=== PATIENT | female | born 1945 | race Caucasian/White ===

== ENCOUNTER → 2017-05-24 | Outpatient (CLI) | payer OTHER ==
[~2017-05-24] MED LIST: ACET-24 PO; LEVO88TA3 PO; LISI40TA PO; NAPR1TAB9 PO; PANT40TA PO; PRAV20TA PO; RANI300T2 PO; SYMIN/8045 INH; TRAZ100T29 PO; ULT50X PO; XRL10 PO
--- NOTE | 2017-05-24 12:55 | DIAGNOSTIC IMAGING REPORT ---
CT OF THE CHEST WITHOUT IV CONTRAST CLINICAL HISTORY: Abnormal preoperative chest radiograph. COMPARISON STUDY: Chest radiograph May 18, 2017. CT DOSE: 493.32 mGycm TECHNIQUE: Axial images of the chest were obtained without IV contrast. Images were reviewed in the axial, sagittal, and coronal planes. IV contrast was not administered for this examination. A dose lowering technique was utilized adhering to the principles of ALARA. FINDINGS: No enlarged axillary, mediastinal or hilar lymph nodes are present. The size of the heart is normal. There is no pericardial effusion. No tracheal abnormality is identified. The possible tracheal abnormality on chest radiograph May 18, 2017 was artifactual. A right shoulder arthroplasty is noted. Lungs are clear with the exception of subsegmental atelectasis within the lower lungs. No pneumothorax or pleural effusion is present. Pulmonary vascularity is normal. Bony thorax and upper abdomen are unremarkable status post cholecystectomy. IMPRESSION: 1. No tracheal abnormality. The possible tracheal abnormality on chest radiograph of May 18, 2017 was artifactual. 2. No acute intrathoracic findings. Electronically signed by: Pedro Jo M.D. 05/24/2017 12:54 PM Dictated Date/Time: 05/24/2017 12:44 PM
== END | disposition home or self-care (01) ==
LOC: C.CTS 11:41
PROVIDERS: ATTEND Orthopaedic Surgery Sports Medicine
DX: Z01.818 Encounter for other preprocedural examination (principal); R93.8 Abnormal findings on diagnostic imaging of other specified body structures

== ENCOUNTER 2017-06-12 10:06 | Inpatient (IN) | payer OTHER ==
[2017-05-18 11:44] VITALS: BMI 33.0
--- NOTE | 2017-05-18 12:16 | PAT Medication Instructions ---
Service Date May 18, 2017. Current Home Medication List Levothyroxine Sodium (Levothyroxine Sodium), 1 TAB PO QAM Lisinopril (Zestril), 40 MG PO QPM Naproxen (Aleve), 220 MG PO UD PRN for Pain Pantoprazole (Protonix), 40 MG PO after all three meal Pravastatin (Pravachol ), 40 MG PO HS Rivaroxaban (Xarelto), 20 MG PO QDD Trazodone Hcl (Trazodone), 100 MG PO UD PRN for Sleep [Inhaler ], Unknown Dose INH UD PRN for ASTHMA Medication Instructions For Your Scheduled Surgery - Instructions to be given by prescribing physician/surgeon: Rivaroxaban (Xarelto), 20 MG PO QDD - Hold the following medications 24 hours prior to surgery: Lisinopril (Zestril), 40 MG PO QPM - Hold the following medications the morning of surgery: Naproxen (Aleve), 220 MG PO UD PRN for Pain (otherwise okay to continue per surgeon) - Take the following medications the morning of surgery with a sip of water OTHERWISE NOTHING TO EAT OR DRINK AFTER MIDNIGHT: Levothyroxine Sodium (Levothyroxine Sodium), 1 TAB PO QAM [Inhaler ], Unknown Dose INH UD PRN for ASTHMA (use if needed; BRING TO HOSPITAL ) Pantoprazole (Protonix), 40 MG PO after all three meal - Take the following medications as scheduled the night before surgery: Pravastatin (Pravachol ), 40 MG PO HS [Inhaler ], Unknown Dose INH UD PRN for ASTHMA Trazodone Hcl (Trazodone), 100 MG PO UD PRN for Sleep If you have any questions please call us at [phone] or [phone] or [phone]
[2017-05-18 13:20] LABS: BASO % 0.4 %; BASO ABS # 0.03 K/uL (0-0.2); COMPLETE YES; EOS % 3.1 %; HEMATOCRIT 41.2 % (37-47); IG% 0.3 %; LYMPH % 22.8 %; LYMPH ABS # 1.79 K/uL (1.2-3.4); MEAN CELL VOLUME 90.9 fL (80-100); MEAN CORPUSCULAR HEMOGLOBIN 30.9 pg (25-34); MEAN PLATELET VOLUME 10.9 fL (7.4-10.4); MONO % 12.2 %; NEUT % 61.2 %; PLATELET COUNT 233 K/uL (130-400); RED BLOOD COUNT 4.53 M/uL (4.2-5.4); WHITE BLOOD COUNT 7.86 K/uL (4.8-10.8)
--- NOTE | 2017-05-18 13:23 | DIAGNOSTIC IMAGING REPORT ---
CHEST 2 VIEWS ROUTINE HISTORY: Preop. COMPARISON: Chest 01/07/2008. FINDINGS: The lungs are clear. The heart is normal in size. No pleural effusions. No pneumothorax. Right shoulder prosthesis. There appears to be focal tortuosity with possible narrowing within the trachea at the level of the sternoclavicular joints. IMPRESSION: There appears to be focal tortuosity with possible narrowing within the trachea at the level of the sternoclavicular joint. Given the preoperative nature of this study a chest CT is recommended to exclude the possibility of tracheomalacia. These findings were called to the referring physician's office following dictation. Electronically signed by: Lazaro Smith M.D. 05/18/2017 1:22 PM Dictated Date/Time: 05/18/2017 1:18 PM
[2017-05-18 13:35] LABS: PROTHROMBIN TIME (PATIENT) 11.1 SECONDS (9.0-12.0)
[2017-05-18 13:39] LABS: BLOOD UREA NITROGEN 19 mg/dl (7-18); BUN/CREATININE RATIO 25.2 (10-20); CALCIUM 8.6 mg/dl (8.5-10.1); CARBON DIOXIDE 27 mmol/L (21-32); CHLORIDE 108 mmol/L (98-107); CREATININE 0.77 mg/dl (0.60-1.20); GLUCOSE 92 mg/dl (70-99); POTASSIUM 3.9 mmol/L (3.5-5.1); SODIUM 141 mmol/L (136-145)
[2017-05-18 13:40] LABS: C-REACTIVE PROTEIN < 0.29 mg/dl (0-0.29)
--- NOTE | 2017-06-06 22:44 | HISTORY & PHYSICAL EXAMINATION ---
DATE OF ADMISSION: 06/12/2017 CHIEF COMPLAINT: Right knee pain. HISTORY OF PRESENT ILLNESS: It is a 72-year-old female who presents for surgical treatment of her right knee. She has got several year history of increasing right knee pain and discomfort. She has been treated with injections, which help her very temporarily. It does not help for more than a week. Pain is mostly in the medial side of her knee. The knee has gotten stiffer as time is going on. She has limited walking tolerance of a couple of blocks. She has nighttime pain. She would like to have her right knee replaced. She cannot take NSAIDs due to her history of DVT and PE in the past and currently on Xarelto. She does have an IVC filter in place. The patient does have a history of a PE after previous colon surgery. She is on chronic Xarelto with an IVC filter in place, though there is no known clotting disorder. PAST MEDICAL HISTORY: 1. Hypertension. 2. Elevated cholesterol. 3. Asthma. 4. 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 5. Hypothyroidism. 6. Obesity with BMI of 33. 7. Gastroesophageal reflux disease. PAST SURGICAL HISTORY: Include: 1. Right shoulder replacement done by Dr. Bailey in 2016. 2. Left knee replacement done by Dr. Naranjo in 2007. 3. IVC filter placement in 2008. 4. Unspecified colon surgery. ALLERGIES: None. CURRENT MEDICINES: 1. Xarelto 20 mg a day. 2. Levothyroxine 88 mcg a day. 3. Lisinopril 40 mg in the evening. 4. Pravastatin 40 mg at night. 5. Pantoprazole 40 mg after meals. 6. Trazodone 100 mg at night. 7. Aleve p.r.n. SOCIAL HISTORY: A 72-year-old female patient from [place] and does not smoke. FAMILY HISTORY: Significant with diabetes and leukemia. There is no known family history of blood clots. REVIEW OF SYSTEMS: Review of systems is significant for previous DVT, PE in the past, on Xarelto. She is not diabetic. No chest pain or shortness of breath. PHYSICAL EXAMINATION: GENERAL: Reveals a pleasant, elderly female who looks reasonably in good health. HEENT: Benign. NECK: Supple. No lymphadenopathy. LUNGS: Clear to auscultation. HEART: Regular rate and rhythm. ABDOMEN: Soft, nontender, nondistended. EXTREMITIES: Grossly neurovascularly intact, except as follows: Examination of the right knee reveals the patient walks with a bit of a stiff knee gait. She does not really bend her knee much. There is a small to moderate sized knee effusion. Range of motion is pretty stiff with 10 degrees short of full extension to 100 degrees of flexion. She can do a straight leg raise. Minimal pain with hip motion. X-RAYS: X-rays of the right knee reveal advanced right knee DJD. She has got near complete loss of medial joint space. This has progressed since her most recent films. She does have a little chondrocalcinosis. ASSESSMENT: A 72-year-old female status post left knee replacement and recent shoulder surgery with advanced right knee degenerative joint disease. She does have a history of pulmonary embolism in the past and has an IVC filter in place and on Xarelto. PLAN: We talked about treatment options. The patient just wants her knee fixed. Not interested in any more conservative care. We are going to take her to the operating room and do a right total knee replacement. The risks and benefits of this procedure were explained to the patient including, but not limited to DVT, PE, , infection, neurological injury, vascular injury, bleeding problem, pain, limited range of motion, stiffness, failure to relieve symptoms, incomplete relief of symptoms, need for further surgery in future, fracture, leg length inequality, nerve palsy, etc. The patient understands and desires to proceed. Informed consent was obtained. We did talk about stopping her Xarelto 3 days preop. She will hold the lisinopril the morning of surgery and stop the Aleve 10 days preop. She really probably should not be on leave in the first place. We will use Xarelto postoperatively for DVT prophylaxis. We will start 24 hours after surgery and begin in a prophylactic dose and then increase this probably 3 days later to a full dose. The patient does have an IVC filter in place. She is planning to be discharged to home using [facility] home health program.
[2017-06-12] VITALS (7 sets, daily range): BP systolic 138–167; BP diastolic 71–83; PULSE 57–70; TEMP 36.3–36.8; O2SAT 93–98; Ht 157.5 cm; Wt 82.8 kg
[~2017-06-12] VITALS: Ht 157.5 cm; Wt 82.8 kg
[~2017-06-12 10:06] MED LIST changes: -ACET-24 PO; +ACETAMINOPHEN 500 MG TAB PO SCH; +BUPIVACAINE 0.5 % 5 MG/1 ML PF 10ML VIAL ONE; +BUPIVACAINE LIPOSOME 266 MG, BUPIVACAINE/EPINEPHRINE INJ 50 ML, SODIUM CHLORIDE 0.9% PF... INFIL SCH; +CEFAZOLIN 2000 MG/60 ML D5W 60 ML IV SCH; +FAMOTIDINE 20 MG TAB PO SCH; +GABAPENTIN 300 MG CAP PO SCH; +LACTATED RINGER'S 1000ML 1,000 ML IV SCH; +LACTATED RINGER'S 1000ML 500 ML IV SCH; +LACTATED RINGER'S 1000ML IV SCH; +METOCLOPRAMIDE HCL 10 MG TAB PO SCH; +SCOPOLAMINE 1.5 MG TDSY TD SCH; +TRANEXAMIC ACID INJ 1,000 MG in SODIUM CHLORIDE 0.9% 100ML 100 ML IV SCH; -ULT50X PO
--- NOTE | 2017-06-12 10:44 | History & Physical Bridge Note ---
H&P Re-Evaluation Bridge Note: I have examined the patient, reviewed the History & Physical and in the interval since the performance of the History & Physical I have noted the following changes of clinical significance: No changes noted
[2017-06-12] MEDS ORDERED: FENTANYL CITRATE INJ 50 MCG/1 ML 2 ML VIAL ONE (10:59)
[2017-06-12] MEDS ORDERED: PROPOFOL IV EMULSION 10 MG/ML 20 ML VIAL IV ONE (10:59)
[2017-06-12] MEDS ORDERED: LIDOCAINE HCL 2% 2 ML VIAL (20MG/ML) ONE (10:59)
[2017-06-12] MEDS ORDERED: MIDAZOLAM HCL 1 MG/ML 2ML VIAL ONE (10:59)
[2017-06-12] MEDS ORDERED: ONDANSETRON INJ 2 MG/ML 2 ML VIAL ONE (10:59)
[2017-06-12] MEDS ORDERED: SODIUM CHLORIDE 0.9% PF 50 ML VIAL ONE (11:01)
[2017-06-12] MEDS ORDERED: BUPIVACAINE LIPOSOME 1/3% 266 MG/20 ML VIAL INFIL ONE (11:01)
[2017-06-12] MEDS ORDERED: BACITRACIN 50000 UNIT VIAL ONE (11:01)
[2017-06-12] MEDS ORDERED: BUPIVACAINE/EPINEPHRINE 0.25% 1:200,000 30 ML VIAL ONE (11:01)
[2017-06-12] MEDS ORDERED: FENTANYL CITRATE INJ 50 MCG/1 ML 2 ML VIAL IV PRN (13:00)
[2017-06-12] MEDS ORDERED: EpHEDrine SULFATE INJ 50 MG/ML AMP IV PRN (13:00)
[2017-06-12] MEDS ORDERED: ATROPINE SULFATE 0.1 MG/ML 5ML SYR IV PRN (13:00)
[2017-06-12] MEDS ORDERED: ONDANSETRON INJ 2 MG/ML 2 ML VIAL IV PRN ×2 (13:00→14:45)
--- NOTE | 2017-06-12 14:36 | [facility] Post Operative Brief Note ---
Immediate Operative Summary Operative Date Jun 12, 2017. Pre-Operative Diagnosis Advanced Right Knee Degenerative Joint Disease Post-Operative Diagnosis same as preop Procedure(s) Performed Right Total Knee Arthroplasty Surgeon Dr. Regan Chandra Drug Safety Scientist Surgeon(s) Gianfranco Torres PA-C Estimated Blood Loss 50ML Findings Right Knee DJD Specimens A.) Right Knee Bone and Tissue Drains NOne Anesthesia Spinal Complication(s) None Disposition Recovery Room / PACU
[2017-06-12] MEDS ORDERED: TRAZODONE HCL 100 MG TAB PO PRN (14:45)
[2017-06-12] MEDS ORDERED: ZOLPIDEM TARTRATE 5 MG TAB PO PRN (14:45)
[2017-06-12] MEDS ORDERED: SILVER SULFADIAZINE 1% CR 50 GM JAR EXT PRN (14:45)
[2017-06-12] MEDS ORDERED: ALUMINUM/MAGNESIUM/SIMETH (MAALOX MAX) 30 ML UDC PO PRN (14:45)
[2017-06-12] MEDS ORDERED: MAGNESIUM HYDROXIDE SUSP 30 ML UDC PO PRN (14:45)
[2017-06-12] MEDS ORDERED: BISACODYL 10 MG SUPP PR PRN (14:45)
[2017-06-12] MEDS ORDERED: METOCLOPRAMIDE HCL INJ 5 MG/ML 2 ML VIAL IV PRN (14:45)
--- NOTE | 2017-06-12 15:19 | DIAGNOSTIC IMAGING REPORT ---
R KNEE 1 OR 2 VIEWS ROUTINE CLINICAL HISTORY: 72 years-old Female presenting with postoperative. TECHNIQUE: Frontal and lateral views of the right knee were obtained. COMPARISON: 05/18/2017. FINDINGS: Postsurgical changes of total right knee arthroplasty with patellar resurfacing. Intra-articular and soft tissue emphysema. Overlying skin sergey. No acute fracture or hardware complication. IMPRESSION: Expected postsurgical appearance status post total right knee arthroplasty with patellar resurfacing. Electronically signed by: Nick Vargas M.D. 06/12/2017 3:18 PM Dictated Date/Time: 06/12/2017 3:17 PM
--- NOTE | 2017-06-12 15:40 | Anesthesiology Progress Note ---
Anesthesia Post Op Note Date & Time Jun 12, 2017 at 15:40 Vital Signs Pain Intensity: 0 Vital Signs Past 12 Hours Date Time Temp Pulse Resp B/P (MAP) Pulse Ox O2 Delivery O2 Flow Rate FiO2 06/12/17 15:30 58 22 119/63 95 Nasal Cannula 2 06/12/17 15:20 58 20 132/62 95 Nasal Cannula 2 06/12/17 15:10 36.7 58 20 121/61 96 Nasal Cannula 2 06/12/17 15:00 61 22 116/58 95 Nasal Cannula 2 06/12/17 14:50 63 20 125/63 97 Nasal Cannula 2 06/12/17 14:42 37.2 66 16 119/60 96 Mask 10 06/12/17 10:45 36.5 66 20 150/81 97 Room Air Notes Mental Status: alert / awake / arousable, participated in evaluation Pt Amnestic to Procedure: Yes Nausea / Vomiting: adequately controlled Pain: adequately controlled Airway Patency, RR, SpO2: stable & adequate BP & HR: stable & adequate Hydration State: stable & adequate Neuraxial Anesthesia: was administered, sensory block is resolving Anesthetic Complications: no major complications apparent
[2017-06-12] MEDS ORDERED: CHECK SCOPOLAMINE PATCH PLACEMENT SCH (16:00)
[2017-06-12] MEDS: HYDROmorphone INJ 0.5 MG/0.5 ML SYR IV PRN ×2 (17:01→18:11)
[2017-06-12] MEDS ORDERED: NURSING VERBAL MED ORDER ONE (17:45)
--- NOTE | 2017-06-12 17:58 | OPERATIVE REPORT ---
DATE OF OPERATION: 06/12/2017 SURGEON: Regan Chandra MD TABULAR TYPIST: TAMRA Chen PREOPERATIVE DIAGNOSIS: Right knee degenerative joint disease. POSTOPERATIVE DIAGNOSIS: Same. PROCEDURE PERFORMED: Right cemented posterior stabilized total knee arthroplasty. COMPLICATIONS: None. ESTIMATED BLOOD LOSS: 50 mL. FLUID REPLACEMENT: 1500 mL crystalloid fluid replacement. TOURNIQUET TIME: 51 minutes at 300 mmHg. ANESTHESIA: Spinal with adductor canal block. DRAINS: None. SPECIMENS: Right knee sent for pathology. OPERATIVE INDICATIONS: The patient is a 72-year-old female who has had a long history of knee problems. She underwent a left knee replacement about 9 years ago and has done pretty well from this. Over the past several years, she has developed increased pain and discomfort in her right knee. She failed conservative care and elected to proceed with total knee arthroplasty. OPERATIVE FINDINGS: Operative findings revealed advanced right knee DJD. She had grade 4 [id number] disease in the medial femoral condyle and medial tibial plateau. She had grade 4 changes in the patellofemoral joint as well. The lateral compartment was pretty well preserved. Moderate size joint effusion. Clinically, she had a pretty stiff knee with limited motion of about 5-100 degrees. OPERATIVE IMPLANTS: Operative implants consisted of: 1. Biomet Vanguard size 60 right posterior stabilized femoral component. 2. Biomet size 67 tibial tray. 3. A 12-mm posterior stabilized polyethylene insert. 4. A 31 x 8 all poly patella. OPERATIVE PROCEDURE: The patient was taken to the operating room, identified and placed on the operative table in the supine position. All contact areas were appropriately padded. IV antibiotics were provided by the anesthesia team. A spinal anesthetic and adductor canal block had been provided in the holding area. Dominguez catheter was placed in sterile fashion. A right thigh tourniquet was then placed and the right lower extremity was then prepped and draped in the usual sterile fashion. The right leg was elevated and exsanguinated with Esmarch and tourniquet was placed at 300 mmHg. An anterior approach to the right knee was then performed through a longitudinal incision centered over the patella. Sharp dissection was carried out through the subcutaneous tissues down to the level of the extensor mechanism. A medial parapatellar arthrotomy incision was made. Some subperiosteal dissection was carried out medially. The fat pad was resected from beneath the patellar tendon. The lateral patellofemoral ligament was released. The patella was everted and the knee was flexed. The osteophytes were taken off the distal femur. The ACL and PCL were then released from the distal femur and the tibia subluxated anteriorly. The external tibial alignment jig was then placed in the anterior face of the tibia and adjusted 14 mm medially. Proximal tibial cut was made to remove about 2 mm of bone from most deficient aspect of the medial tibial side. Some osteophytes were taken off medial and posteromedially. Tibia was sized to a size 67. Attention was then drawn to the femur. The distal femur was entered with a sharp drill. Intramedullary canal was suctioned. A right 5-degree valgus cutting guide was placed. Distal femoral cutting block was pinned in place. Distal femoral cut was made to take an additional 3 mm of bone off the distal femur. The femur was then sized to a size 60. We did downsize this slightly. The AP cutting block was pinned parallel to the epicondylar axis, which was 3 degrees of external rotation. The anterior cut, anterior chamfer, posterior cut, and posterior chamfer cuts were made. Box cutting guide was placed and adjusted slight lateral and the box cut was made. The knee was flexed. The remnants of the medial and lateral menisci were excised. The osteophytes were taken off the posterior aspect of the femur. A trial femoral component was placed. The tibial tray was pinned in maximum external rotation and the drill and stem punch were used to create defect in the proximal tibia for the tibial tray. The knee was then trialed and the 12-mm insert fit most appropriately. Attention was then drawn to the patella. The patella was cleaned of all soft tissues. The patella thickness measured 22 mm and it was cut down to 13 mm of thickness. It was sized to a size 31 patella. Lug holes were drilled for the 31 patella. Lateral osteophyte was removed. Patella button was placed. Knee was taken through range of motion and the patella tracked nicely with no thumbs test. Attention was then drawn toward placement of permanent components. All trial components were removed. A bone plug was placed in the distal femur to limit blood loss. A double batch of Palacos G cement was mixed. A right size 60 right posterior stabilized femoral component, a size 67 tibial tray, a 12-mm posterior stabilized polyethylene insert and a 31 x 8 all poly patella were then cemented in place. The knee was brought out into full extension until cement hardened. A final cement check was then performed. The wound was then irrigated with copious amounts of pulsatile lavage solution. I did inject locally with 100 mL of a combination of 20 mL of Exparel, 30 mL of normal saline, and 50 mL of 0.25% Marcaine with epinephrine. The patient did receive 1 gram of tranexamic acid. The tourniquet was let down for a final tourniquet time of 51 minutes. Hemostasis was assured with use of electrocautery. The extensor mechanism was then closed with a combination of #1 PDS suture and #1 Vicryl suture in a [id number] fashion. Extensor mechanism was checked and found to be intact. Subcutaneous tissues were then closed with 2-0 Dexon suture in a buried interrupted fashion. Skin was closed with skin sergey. The leg was then cleaned and dried and a sterile dressing of Xeroform, 4 x 4, sterile cast padding and Oren bandage were applied. The patient then transferred to the recovery room in stable condition. The patient tolerated the procedure well with no complications. All needle and sponge counts were correct at the end of the operation. I attest to the content of the Intraoperative Record and any orders documented therein. Any exception s are noted below.
[2017-06-12] MEDS: FERROUS GLUCONATE 324 MG TAB PO SCH (18:15)
[2017-06-12] MEDS ORDERED: INFLUENZA VACCINE HIGH DOSE 65+ 0.5 ML SYR IM. ONE (18:45)
[2017-06-12] MEDS ORDERED: INFLUENZA ADMINISTRATION CHARGE ONE (18:45)
[2017-06-12] MEDS: NSS + 20MEQ KCL 1000ML 1,000 ML IV SCH (19:26)
[2017-06-12] MEDS: TRAMADOL HCL 50 MG TAB PO PRN (20:39)
[2017-06-12] MEDS: KETOROLAC TROMETHAMINE 15 MG/ML VIAL IV. SCH (20:40)
[2017-06-12] MEDS: BUDESONIDE/FORMOTEROL FUMARATE 80/4.5 60 PUFFS/INHALER INH SCH (20:41)
[2017-06-12] MEDS: DOCUSATE SODIUM 100 MG CAP PO SCH (20:42)
[2017-06-12] MEDS: PRAVASTATIN SOD 20 MG TAB PO SCH (20:42)
[2017-06-12] MEDS: SENNA 8.6 MG TAB PO SCH (20:43)
[2017-06-12] MEDS: LISINOPRIL 40 MG TAB PO SCH (21:22)
[2017-06-12] MEDS: ACETAMINOPHEN 500 MG TAB PO SCH (21:31)
[2017-06-12] MEDS: CEFAZOLIN IV 2,000 MG in DEXTROSE 5% 50ML 50 ML IV SCH (21:31)
[2017-06-13] MEDS: KETOROLAC TROMETHAMINE 15 MG/ML VIAL IV. SCH ×3 (01:53→14:31)
[2017-06-13 03:34] VITALS: BP 112/68; PULSE 66; TEMP 36.8; O2SAT 94
[2017-06-13] MEDS: NSS + 20MEQ KCL 1000ML 1,000 ML IV SCH (03:50)
[2017-06-13] MEDS ORDERED: COUGH DROP (SUGAR FREE) LOZ 24 LOZ/1 BOX ONE (03:54)
[2017-06-13] MEDS: CEFAZOLIN IV 2,000 MG in DEXTROSE 5% 50ML 50 ML IV SCH (06:01)
[2017-06-13] MEDS: LEVOTHYROXINE 88 MCG TAB PO SCH (06:02)
[2017-06-13] MEDS: ACETAMINOPHEN 500 MG TAB PO SCH ×3 (06:02→21:40)
[2017-06-13 06:17] LABS: HEMATOCRIT 36.5 % (37-47); MEAN CELL VOLUME 90.3 fL (80-100); MEAN CORPUSCULAR HEMOGLOBIN 30.2 pg (25-34); MEAN CORPUSCULAR HGB CONC 33.4 g/dl (32-36); MEAN PLATELET VOLUME 9.9 fL (7.4-10.4); PLATELET COUNT 194 K/uL (130-400); RED BLOOD COUNT 4.04 M/uL (4.2-5.4); WHITE BLOOD COUNT 8.97 K/uL (4.8-10.8)
[2017-06-13 06:58] LABS: BUN/CREATININE RATIO 17.4 (10-20); CALCIUM 8.3 mg/dl (8.5-10.1); CREATININE 0.74 mg/dl (0.60-1.20); POTASSIUM 4.1 mmol/L (3.5-5.1)
[2017-06-13 07:01] VITALS: BP 130/76; PULSE 70; TEMP 36.9; O2SAT 92
--- NOTE | 2017-06-13 07:42 | Anesthesiology Progress Note ---
Anesthesia Post Op Note Date & Time Jun 13, 2017 at 07:42 Vital Signs Pain Intensity: 10.0 Vital Signs Past 12 Hours Date Time Temp Pulse Resp B/P (MAP) Pulse Ox O2 Delivery O2 Flow Rate FiO2 06/13/17 07:01 36.9 70 16 130/76 (94) 92 Room Air 06/13/17 03:34 36.8 66 16 112/68 (83) 94 Room Air 06/12/17 23:39 Room Air 06/12/17 22:50 36.8 68 16 138/71 (93) 93 Room Air Notes Mental Status: alert / awake / arousable, participated in evaluation Pt Amnestic to Procedure: Yes Nausea / Vomiting: adequately controlled Pain: improving with treatment Airway Patency, RR, SpO2: stable & adequate BP & HR: stable & adequate Hydration State: stable & adequate Neuraxial Anesthesia: was administered, sensory block resolved Anesthetic Complications: no major complications apparent
[2017-06-13] MEDS: FERROUS GLUCONATE 324 MG TAB PO SCH ×3 (08:13→18:27)
[2017-06-13] MEDS: BUDESONIDE/FORMOTEROL FUMARATE 80/4.5 60 PUFFS/INHALER INH SCH ×2 (08:13→20:38)
[2017-06-13] MEDS: MULTIVITAMIN TAB PO SCH (08:16)
[2017-06-13] MEDS: PANTOprazole SOD 40 MG TAB PO SCH (08:16)
[2017-06-13] MEDS: DOCUSATE SODIUM 100 MG CAP PO SCH ×2 (08:16→20:38)
[2017-06-13] MEDS: TRAMADOL HCL 50 MG TAB PO PRN ×2 (08:19→16:25)
[2017-06-13] MEDS ORDERED: PANTOprazole SOD 40 MG TAB PO SCH (09:00)
[2017-06-13 09:25] VITALS: BP 121/68
[2017-06-13 11:03] VITALS: BP 122/71; PULSE 73; TEMP 37.1; O2SAT 91
[2017-06-13] MEDS: HYDROmorphone INJ 0.5 MG/0.5 ML SYR IV PRN (12:17)
--- NOTE | 2017-06-13 12:35 | PROGRESS NOTE ---
DATE: 06/13/2017 SUBJECTIVE: A 72-year-old female postop day #1 from right knee replacement. She is doing pretty well. Pain is controlled. Therapy went well. Denies any chest pain or shortness of breath. Not feeling dizzy or lightheaded. OBJECTIVE: VITAL SIGNS: Temperature 37.1. Vital signs stable. GENERAL: Reveals a pleasant elderly female. She is lying in bed and looks comfortable. LUNGS: Clear to auscultation. HEART: Regular rate and rhythm. ABDOMEN: Soft, nontender, nondistended. EXTREMITIES: Grossly neurovascularly intact except as follows: Examination of the right leg reveals the dressing to be clean, dry and intact. She can dorsiflex and plantarflex her foot appropriately. She is neurologically intact. LABORATORY DATA: Hemoglobin is 12.2, hematocrit 36.5. Electrolytes are stable. ASSESSMENT: A 72-year-old white female with a history of a deep vein thrombosis and PE in the past with inferior vena cava filter on postop day #1 from right knee replacement. She is doing pretty well. Pain is reasonably well controlled. She is neurologically intact. PLAN: 1. DVT prophylaxis including thigh-high TEDs, SCDs, and Xarelto. We will start her back on prophylactic Xarelto today and increase it to her therapeutic dose probably postop day #3. 2. PT/OT: She can weightbear as tolerated. Right total knee protocol. 3. Pain control: Doing well with current pain regimen. 4. Disposition: She is planning to be discharged home and do outpatient therapy once medically stable and recovered.
[2017-06-13] MEDS ORDERED: RIVAROXABAN 10 MG TAB PO SCH (15:00)
[2017-06-13 15:34] VITALS: BP 103/60; PULSE 75; TEMP 36.7; O2SAT 92
[2017-06-13] MEDS ORDERED: ULT50X PO (17:40)
[2017-06-13] MEDS ORDERED: ACET-24 PO (17:40)
--- NOTE | 2017-06-13 17:43 | Discharge Instructions ---
Discharge Instructions Date of Service Jun 13, 2017. Admission Reason for Admission: Right Knee Degenerative Joint Disease Discharge Discharge Diagnosis / Problem: Right Knee Replacment Discharge Goals Goal(s): Decrease discomfort, Improve function, Increase independence, Improve disease control, Therapeutic intervention Activity Recommendations Activity Limitations: per Instructions/Follow-up section Weightbearing Status: Right weightbearing . Instructions / Follow-Up Instructions / Follow-Up ACTIVITY RECOMMENDATIONS: Physical Therapy: * You will go to physical therapy three times each week for four to six weeks after your surgery in order to regain your knee range of motion and to retrain your knee to work properly. * It is just as important to make sure you are getting your knee perfectly straight as it is to regain your knee bend. * Taking a pain pill an hour before therapy can help you have a more productive and comfortable therapy session. Home Exercise: * You were shown a series of exercises (heel props, heel slides, etc.) in the hospital. Do these exercises three to four times each day including the exercises you were shown in physical therapy. Walking: * Get up and walk several times each day. For the first four weeks, try not to stand or walk for more than one hour at a time. If you do stand or walk for more than one hour, you will not hurt anything, but your knee and leg will likely swell. * As you feel comfortable, you may change from the walker or crutches to a cane and then to independent walking. MEDICATIONS: New Medicine: * You will likely be taking one or more of these medications: 1. Tramadol - A quick and shorter-acting pain medication. Take one to two tablets every four to six hours to lessen your pain. 2. Xarelto - Thins your blood to lessen the chance of forming a blood clot. * The most common side effects of pain medicine and iron are nausea and constipation. If nausea or constipation is too much of a problem or if you have any questions about your new medicines or doses, call [facility] at . We will try to help you manage these issues. VERY IMPORTANT TO READ AND REVIEW" Pain: * The immediate post-operative period after knee replacement surgery is often quite painful. * You are given a prescription for pain medicine. You should take it, as directed, when you need it, especially before physical therapy and before going to bed. Pain that interferes with sleep is very common and can last several months. * You will likely need pain medicine for the first four to six weeks. It will not stop all of the pain. The pain will lessen and as you feel better, you may change to milder pain medicine such as Tylenol. * The most common side effects of pain medicine are nausea and constipation, so don't take more than you need. SPECIAL CARE INSTRUCTIONS: TEDs/Elastic Stockings: * The white elastic stockings help limit swelling and prevent blood clots from forming in your legs. The more you wear them, the more they work. * Wear them for six weeks after knee replacement surgery and four weeks after partial knee replacement. Prevention of Infection: * Take antibiotics one hour before any dental cleaning, dental work, urological procedure, gastrointestinal procedure or any invasive surgery in order to prevent your new joint from getting infected. * You may get the antibiotics from the doctor performing the procedure or you may call our office at before and we will call in a prescription to the pharmacy of your choice. Things to Watch For: * Drainage from the incision site that occurs more than one week after your surgery. * Severely increased knee/leg pain or swelling. * Increased redness at the incision site. * Fever above 102 degrees Fahrenheit. * Unusual chest pain or shortness of breath. * Unusual pain or burning with urination. Call [facility] at with any of the above problems or if you have any questions about your medicines or recovery. FOLLOW UP VISIT: Make an appointment to see your doctor for approximately two weeks after surgery for a progress check and staple removal by calling the office at . Current Hospital Diet Patient's current hospital diet: Regular Diet Discharge Diet Recommended Diet: Regular Diet Procedures Procedures Performed: Right Total Knee Arthroplasty Pending Studies Studies pending at discharge: no Medical Emergencies . Who to Call and When: Medical Emergencies: If at any time you feel your situation is an emergency, please call [phone] immediately. . Non-Emergent Contact Non-Emergency issues call your: Surgeon . "Provider Documentation" section prepared by Regan Chandra. . VTE Core Measure Inpt VTE Proph given/why not?: Other Anticoagulation, T.E.D. Stockings, SCD's
[2017-06-13] MEDS: PRAVASTATIN SOD 20 MG TAB PO SCH (21:39)
[2017-06-13] MEDS: SENNA 8.6 MG TAB PO SCH (21:39)
[2017-06-13] MEDS: LISINOPRIL 40 MG TAB PO SCH (21:40)
[2017-06-13 23:37] VITALS: BP 156/76; PULSE 73; TEMP 37.2; O2SAT 90
[2017-06-14] MEDS: TRAMADOL HCL 50 MG TAB PO PRN ×3 (00:02→09:13)
[2017-06-14] MEDS: ACETAMINOPHEN 500 MG TAB PO SCH (05:30)
[2017-06-14] MEDS: LEVOTHYROXINE 88 MCG TAB PO SCH (05:30)
[2017-06-14 07:27] VITALS: BP 164/77; PULSE 85; TEMP 37.1; O2SAT 90
--- NOTE | 2017-06-14 08:08 | PROGRESS NOTE ---
DATE: 06/14/2017 DATE: 06/14/2017 SUBJECTIVE: A 72-year-old female postop day 2 from a right knee replacement. She is doing pretty well. Pain has been significant but tolerable. No chest pain or shortness of breath. Not feeling dizzy or lightheaded. OBJECTIVE: VITAL SIGNS: Temperature 37.1. Vital signs stable. PHYSICAL EXAMINATION: RIGHT KNEE: Reveals the wound to be clean, dry and intact. Some mild swelling. No significant drainage. Calf is soft and supple. She is neurologically intact. 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 PLAN: 1. DVT prophylaxis including thigh-high TEDs, SCDs, and she is on Xarelto. Will increase that to a full dose starting tomorrow. 2. PT/OT. Weightbearing as tolerated. Right total knee protocol. 3. Pain control. Doing pretty well with current pain regimen. 4. Disposition. She is planning to be discharged to home and do outpatient therapy once medically stable.
[2017-06-14] MEDS: PANTOprazole SOD 40 MG TAB PO SCH (09:09)
[2017-06-14] MEDS: BUDESONIDE/FORMOTEROL FUMARATE 80/4.5 60 PUFFS/INHALER INH SCH (09:09)
[2017-06-14] MEDS: MULTIVITAMIN TAB PO SCH (09:09)
[2017-06-14] MEDS: FERROUS GLUCONATE 324 MG TAB PO SCH (09:09)
[2017-06-14] MEDS: DOCUSATE SODIUM 100 MG CAP PO SCH (09:13)
[2017-06-14 11:35] VITALS: BP 164/77; PULSE 85; TEMP 37.1; O2SAT 90
--- NOTE | 2017-06-18 15:01 | DISCHARGE SUMMARY ---
ADMITTING PHYSICIAN AND SURGEON: Dr. Chandra. ADMITTING DIAGNOSIS: Right knee degenerative joint disease. SURGERY PERFORMED: Right total knee arthroplasty. SECONDARY DIAGNOSES: Hypertension, elevated cholesterol, asthma, history of DVT, PE, hypothyroidism, obesity, gastroesophageal reflux disease. CONSULTS: None obtained. HISTORY AND PHYSICAL EXAMINATION: Well documented in the patient's chart. HOSPITAL COURSE: The patient was admitted on 06/12/2017 underwent total knee arthroplasty, tolerated the procedure well. There were no complications. She was transferred to the PACU postoperatively and later to the orthopedic floor for further care. She was given Ancef for antibiotic prophylaxis, STEPHANIE stockings, SCDs and Xarelto for DVT prophylaxis. Her hemoglobin, hematocrit and vital signs were monitored during her hospital stay and remained stable. She did not require any blood transfusions. There were no complications during her hospital stay. By postoperative day 2, she was tolerating a regular diet, pain was controlled with oral pain medicine. She was participating in physical therapy and had no signs or symptoms of deep vein thrombosis. On postop day 2, she was discharged home. She was given printed discharge instructions including prescriptions for extra strength Tylenol and tramadol. Continue her home medications including Xarelto for DVT prophylaxis. Continue physical therapy, weightbearing as tolerated. STEPHANIE stockings and follow up in 10-12 days or sooner if there are any problems or concerns.
== END 2017-06-14 12:17 | disposition home or self-care (01) | DRG 470 ==
LOC: C.ACU 10:06 → C.3E 11:30 → ENRESERV 15:11 → C.3E 06-13 10:55
PROVIDERS: ADMIT Orthopaedic Surgery Sports Medicine; ATTEND Orthopaedic Surgery Sports Medicine
PROC: 0SRC0J9 Replacement of Right Knee Joint with Synthetic Substitute, Cemented, Open Approach (ICD-10-PCS; principal; 2017-06-12 12:45)
DX: M17.11 Unilateral primary osteoarthritis, right knee (principal); I10 Essential (primary) hypertension; J45.909 Unspecified asthma, uncomplicated; E03.9 Hypothyroidism, unspecified; E66.9 Obesity, unspecified; Z68.33 Body mass index [BMI] 33.0-33.9, adult; K21.9 Gastro-esophageal reflux disease without esophagitis; Z96.611 Presence of right artificial shoulder joint; Z96.652 Presence of left artificial knee joint; Z95.828 Presence of other vascular implants and grafts; Z86.718 Personal history of other venous thrombosis and embolism; Z86.711 Personal history of pulmonary embolism